=== PATIENT | female | born 1955 | race Caucasian/White ===

== ENCOUNTER 2022-09-09 07:34 | Outpatient (CLI) | payer OTHER, SELFPAY ==
[2022-09-09 08:28] LABS: Miscellaneous Test See Scanned Lab Rpt
== END 2022-09-09 07:35 | disposition home or self-care (01) ==
PROVIDERS: PCP Registered Nurse; Visit Provider Internal Medicine Nephrology
DX: Z01.89 Encounter for other specified special examinations (principal)
CPT/HCPCS: 36415